=== PATIENT | male | born 1975 | race Caucasian/White ===

== ENCOUNTER 2022-03-05 11:30 | Emergency (ER) | payer BC ==
[2022-03-05] MEDS ORDERED: Meclizine HCl 25 MG TAB ONE (12:09)
== END 2022-03-05 12:22 | disposition home or self-care (01) ==
LOC: MADERS 11:30
DX: H83.02 Labyrinthitis, left ear (principal); R07.89 Other chest pain; F17.210 Nicotine dependence, cigarettes, uncomplicated
CPT/HCPCS: 93005